=== PATIENT | female | born 1980 | race Caucasian/White ===

== ENCOUNTER 2017-01-30 16:05 | Observation (INO) | payer OTHER ==
[~2017-01-30] VITALS: Ht 175.3 cm; Wt 149.4 kg
--- NOTE | 2017-01-30 20:08 | DIAGNOSTIC IMAGING REPORT ---
PROCEDURE: US COMPLETE PELVIC INDICATION: POST-COITAL PAIN LEFT PELVIC AREA TECHNIQUE: Transabdominal and endovaginal quintanilla scale and color Doppler sonographic images of the female pelvis were obtained. COMPARISON: None. FINDINGS: TRANSABDOMINAL SCANS: Normal kidneys. No pelvic mass. TRANSVAGINAL SCANS: Uterus measures 8.4 x 4.6 x 4.1 cm with an IUD in satisfactory position. Endometrium measures 10.3 mm. No evidence of intrauterine gestational sac. Right ovary not visualized. Left adnexal structure measures 2.9 x 2.2 x 2.2 cm with difficult to differentiate margins and adjacent heterogeneous tissue. There is mild fluid in the adnexa with internal echoes suspicious for a hemoperitoneum. IMPRESSION: 1. IUD in place 2. Left adnexal structure which probably represents the left ovary with heterogeneous adjacent tissue and mild echogenic free fluid suggestive of hemoperitoneum. In the context of a positive test and no intrauterine gestational sac, this is suspicious for an ectopic 3. Results discussed with Dr. Saleh
--- NOTE | 2017-01-30 20:12 | ED CLINICAL REPORT ---
Clinical Report - Physicians/Mid Levels [facility] [address] [place] [address] 01/30/2017 16:07 Patient: TAL ANGEL Time Seen: 1625. Arrived- By private vehicle. Historian- patient. HISTORY OF PRESENT ILLNESS Chief Complaint: ABDOMINAL PAIN. It is described as sharp. No radiation. It is described as located in the left pelvis. At its maximum, severity described as severe. When seen in the E.D., severity described as severe. Modifying factors- worsened by movement. Not relieved by anything. This started today and is still present and worsening. It was abrupt in onset and has been constant but is not gone now. The patient has had nausea. No loss of appetite, vomiting or diarrhea. No additional abdominal pain. (occurred right after coitus.). No recent travel. REVIEW OF SYSTEMS No black stools, hematemesis, bloody stools, fever or chest pain. No difficulty breathing. All systems otherwise negative, except as recorded above. PAST HISTORY See nurses notes. Medications: None. Allergies: Cinamon . Eggs. Latex. SOCIAL HISTORY Never smoker. No alcohol use or drug use. No recent travel. Is a local resident. ADDITIONAL NOTES The nursing notes have been reviewed. PHYSICAL EXAM Vital Signs: 01/30/2017 16:12 BP: 143/77. HR: 83. RR: 22. O2 saturation: 98%. Temp: 97.5 F. Pain level now: 10/10. Oxygen saturation normal. Appearance: Alert. Oriented X3. Patient in moderate distress. (non-toxic. cooperative. pleasant.). Eyes: Pupils equal, round and reactive to light. Eyes normal inspection. No pale conjunctivae. ENT: Ears normal. Nose normal. Pharynx normal. Neck: Normal inspection. Neck supple. CVS: Normal heart rate and rhythm. Heart sounds normal. Pulses normal. Respiratory: No respiratory distress. Breath sounds normal. Chest nontender. No rales, rhonchi or wheezes. Abdomen: Soft. Moderate tenderness in the left lower quadrant. Bowel sounds normal. No organomegaly. No mass. Skin: Skin warm and dry. Normal skin color. No rash. Normal skin turgor. Extremities: Extremities exhibit normal ROM. No lower extremity edema. Neuro: No motor deficit. No sensory deficit. LABS, X-RAYS, AND EKG Pelvic Sonogram: unable to see right ovary. possible free fluid in the left pelvis. The study was independently viewed by me and interpreted by the radiologist. The study was discussed with the radiologist (via phone and pacs). Laboratory Tests: UA-Culture if indicated: (SHAHANA: 01/30/2017 16:00) ( [facility] 01/30/2017 16:56) Final results Test Result Flag Units (Reference) URINE COLOR YELLOW URINE APPEARANCE CLOUDY URINE GLUCOSE NEGATIVE (NEGATIVE) URINE BILIRUBIN NEGATIVE (NEGATIVE) URINE KETONE NEGATIVE (NEGATIVE) URINE SPECIFIC GRAVITY >= 1.030 (1.010-1.030) URINE PH 6.0 (5.0-8.0) URINE PROTEIN 1+ (NEGATIVE) URINE UROBILINOGEN 0.2 EU/dL (0.2-1.0) URINE NITRITE NEGATIVE (NEGATIVE) URINE BLOOD 3+ (NEGATIVE) URINE LEUK ESTERASE NEGATIVE (NEGATIVE) URINE RBC 75-100 rbc/hpf (0-1) URINE WBC NONE SEEN wbc/hpf (0-1) URINE EPITHELIAL CELLS 3-5 EPI/hpf (0-5) URINE BACTERIA NONE SEEN (NONE SEEN) URINE COMMENT CULT NOT INDICATED 1+ MUCUSURINE CULTURES ARE SET-UP BASED ON THE FOLLOWING CRITERIA:POSITIVE NITRITEPOSITIVE LEUKOCYTE ESTERASEGREATER THAN 10 WHITE BLOOD CELLSMODERATE (2+) OR GREATER BACTERIA Urine: (SHAHANA: 01/30/2017 16:10) ( [facility] 01/30/2017 16:57) Final results Test Result Flag Units (Reference) URINE POSITIVE CBC w Diff: (SHAHANA: 01/30/2017 16:40) ( [facility] 01/30/2017 16:57) Final results Test Result Flag Units (Reference) WHITE BLOOD COUNT 13.4 H K/uL (4.5-11.5) RED BLOOD COUNT 4.89 M/uL (4.00-5.20) HEMOGLOBIN 14.0 gm/dL (12.0-16.0) HEMATOCRIT 42.1 % (36.0-46.0) MEAN CELL VOLUME 86 fL (80-100) MEAN CORPUSCULAR HGB 29 pg (26-34) MEAN CORPUSCULAR HGB CONC 33 g/dL (31-37) RED CELL DISTRIBUTION WIDTH 13.4 % (11.6-14.8) PLATELET COUNT 369 K/uL (150-400) NEUTROPHIL % 76.6 H % (50-75) LYMPH % 14.9 L % (25-40) MONO % 6.1 % (3-14) EOSINOPHIL % 2.1 % (0-4) BASOPHIL % 0.3 % (0-2) Serum Quantitative: (SHAHANA: 01/30/2017 16:40) ( [facility] 01/30/2017 19:09) Final results Test Result Flag Units (Reference) BETA HCG, QUANTITATIVE 59 mIU/mL REFERENCE RANGE:Adult Males: <2 mIU/mLNon- Females: <6 mIU/mL Females:Approximate Approximate hCGGestational Age Range (mIU/mL) 0-1 week 0-501-2 weeks 40-3002-3 weeks 100-72793-2 weeks 500-91117-4 months 5,000-200,0002-3 months 10,000-100,0002nd trimester 3,000-50,0003rd trimester 1,000-50,000 CMP: (SHAHANA: 01/30/2017 16:40) ( [facility] 01/30/2017 17:12) Final results Test Result Flag Units (Reference) GLUCOSE 113 H mg/dL (70-110) BUN 14 mg/dL (7-18) CREATININE 0.8 mg/dL (0.6-1.3) Estimated GFR >60 mL/min Estimated GFR- >60 mL/min Note: Persistent reduction over 3 months in eGFR<60 mL/min/1.73 m2 defines CKD. Patients with eGFR values>=60 mL/min/1.73 m2 may also have CKD if evidence ofpersistent proteinuria. Additional information may be foundat www.kidney.org. SODIUM 142 mmol/L (136-145) POTASSIUM 4.0 mmol/L (3.5-5.1) CHLORIDE 105 mmol/L (98-107) CARBON DIOXIDE 25 mmol/L (21-32) CALCIUM 8.4 L mg/dL (8.5-10.1) TOTAL PROTEIN 7.4 g/dL (6.4-8.2) ALBUMIN 3.3 g/dL (3.3-5.0) BILIRUBIN, TOTAL 0.2 mg/dL (0.0-1.0) ALKALINE PHOSPHATASE 62 U/L (46-116) AST (SGOT) 16 U/L (15-37) ALT (SGPT) 29 U/L (12-78) Type & Screen: (SHAHANA: 01/30/2017 16:40) ( Msg[facility]cvd 01/30/2017 19:05) Final results Test Result Flag Units (Reference) PATIENT BLOOD TYPE A Positive ANTIBODY SCREEN NEGATIVE . PROGRESS AND PROCEDURES Course of Care: The patient is a pleasant 36 yo female presenting for left pelvic pain. Patient in discomfort. Concern for ectopic, PID, or UTI. US ordered. Patient a febrile and non-toxic. Work up shows patient to have positive U preg. Beta ordered. US shows patient to have free fluid in the pelvis. Type and screen ordered. Pain was somewhat difficult to control in the ED. Able to get it better controlled with several doses of morphine. Patient likely with ectopic preg. CRAB PICKER called. Beta pending. Spoke with CRAB PICKER about managment. Because of patient's pain and free fluid. Patient could be monitored in the hospital. Patient agreeable to the work up and plan. Patient with normal h/h and BP. Patient without signs of acute blood loss anemia or hypovolemia. Will monitor while here. CRAB PICKER accepted patient. Critical care performed (60 minutes). Time is exclusive of separately billable procedures. Time includes: direct patient care, patient reassessment, coordination of patient care, review of patient's medical records, medical consultation and documentation of patient care. CLINICAL IMPRESSION ectopic , acute intraabdominal hemorrhage, acute intractable abdominal pain. (Electronically signed by Javed Saleh Dr. 01/31/2017 9:17)
--- NOTE | 2017-01-30 20:12 | ED ORDER SUMMARY ---
..... Patient: TAL ANGEL OrderSheet [facility] VisitID: [id number] [place] [address] 36y, F Registration Date/Time: 01/30/2017 ORDER SHEET Weight: 136.0 kg (estimated) Allergies: Eggs, Cinamon , Latex GENERAL ORDERS: US Pelvic Complete Urgent (16:01/30/2017 Luis Coreas) (Ack 16:40 Satnam) (18:21 KPage-Kuchan R.N.) CBC w Diff Urgent (16:01/30/2017 Luis Coreas) (Ack 16:40 Satnam) (16:42 MWinterer R.N.) CMP Urgent (16:01/30/2017 Luis Coreas) (Ack 16:40 Satnam) (16:42 MWinterer R.N.) UA-Culture if indicated Urgent (16:01/30/2017 Luis Coreas) (Ack 16:40 Satnam) (16:51 MWinterer R.N.) Urine Urgent (16:01/30/2017 Luis Coreas) (Ack 16:40 Satnam) (16:51 MWinterer R.N.) Pulse oximeter (16:01/30/2017 Luis Coreas) (Ack 16:40 Satnam) (16:42 MWinterer R.N.) Serum Quantitative Urgent (18:01/30/2017 Luis Coreas) (Ack 18:20 Satnam) (18:21 KPage-Kuchan R.N.) Type & Screen Urgent (18:01/30/2017 Luis Coreas) (Ack 18:20 Satnam) (18:21 KPage-Kuchan R.N.) MEDICATION ORDERS: IV FLUIDS: Morphine IV 4 mg (HIGH ALERT MEDICATION, NOW) (16:01/30/2017 Luis Coreas) (Ack 16:43 MWinterer R.N.) (16:49 MWinterer R.N.) Zofran IV 4 mg (NOW) (16:01/30/2017 Luis Coreas) (Ack 16:43 MWinterer R.N.) (16:49 MWinterer R.N.) IV Saline Lock (16:31 01/30/2017 Luis Coreas) (16:43 MWinterer R.N.) Morphine IV 8 mg (HIGH ALERT MEDICATION, NOW) (17:17 01/30/2017 Luis Coreas) (Ack 17:18 MWinterer R.N.) (17:26 MWinterer R.N.) Morphine IV 8 mg (HIGH ALERT MEDICATION, NOW) (18:11 01/30/2017 Luis Coreas) (Ack 18:13 KPage-Kuchan R.N.) (18:21 KPage-Kuchan R.N.) Morphine IV 8 mg (HIGH ALERT MEDICATION, NOW) (20:09 01/30/2017 Luis Coreas) (Ack 20:10 KPage-Kuchan R.N.) (20:48 KPage-Kuchan R.N.) ORDER SHEET NOTES: [Electronically signed by Javed Saleh Dr. (09:17 01/31/2017)] [Electronically signed by Allegra Orlando R.N. (17:49 02/03/2017)] [Electronically locked/signed by Allegra Orlando R.N. (17:49 02/03/2017)]
--- NOTE | 2017-01-30 20:12 | ED NURSING NOTES ---
Clinical Report - Nurses [facility] [address] [place] [address] 01/30/2017 16:07 Patient: TAL ANGEL TRIAGE Triage time 16:12. Acuity: LEVEL 3. Chief Complaint: ABDOMINAL PAIN and (Hurts in the groin and around to the back, and down the legs. Mostly the lt leg. Pain started a couple of hours ago after having sex with SO, also having some vaginal bleeding when wipes and in the toilet.). Alert. No acute distress. TREVOR COMA SCORE: [place] Coma Scale: 15- eyes open spontaneously (4); best verbal response- oriented x 4 (5); best motor response- obeys commands (6). --16:26 Dara Lopez R.N. 16:12 01/30/17. BP: 143/77 taken on the left arm, while sitting. HR: 83. RR: 22. O2 saturation: 98%. Temp: 97.5 F. Pain level now: 06/08. --16:26 Dara Lopez R.N. Height/Length: 69 inches Per Patient. --16:21 Dara Lopez R.N.. Weight: 136 kg estimated. BMI: 44.3. --16:21 Dara Lopez R.N. Medications None. --16:19 Dara Lopez R.N. Medication/allergy information source: the patient. --16:26 Dara Lopez R.N. Allergies Eggs. --16:20 Dara Lopez R.N. Cinamon . --16:20 Dara Lopez R.N. Latex. --16:20 Dara Lopez R.N. History Arrived by private vehicle. Historian: patient. Accompanied by friend. No primary care physician. This started just prior to arrival. She has had nausea, constipation and abdominal pain. No vomiting. Last oral intake by patient was today 1 hour ago. Treatment FASHION CONSULTANT SALES: None. PAST MEDICAL HX: Immunizations: status is unknown. Uses an intrauterine device. SOCIAL HX: Smoker- current status unknown. Alcohol use; consumes beer daily and liquor daily. History of drug use: marijuana. No recent travel. No known contact with a sick individual. FALL RISK ASSESSMENT: Fall risk assessment completed. No fall risk identified. NUTRITIONAL RISK ASSESSMENT: The nutritional risk assessment revealed no deficiencies. FUNCTIONAL ASSESSMENT: Functional assessment: no impairments noted. LEARNING NEEDS ASSESSMENT: The learning needs assessment revealed no barriers. SKIN INTEGRITY ASSESSMENT: Skin integrity risk assessment completed. No skin integrity risk identified. --16:26 Dara Lopez R.N. PROBLEMS: Hypertension. --16:20 Dara Lopez R.N. ADDITIONAL SURGERIES: Cholecystectomy. --16:20 Dara Lopez R.N. Interventions ID band on patient. To room. --16:26 Dara Lopez R.N. PHYSICAL ASSESSMENT Ambulatory to room. Patient gowned. GENERAL / NEURO / PSYCH: Alert. Oriented X 4. Appears in pain and anxious. HEENT: Mucous membranes are pink. RESPIRATORY: Respirations not labored. CVS: Capillary refill less than 2 seconds. GI / : The patient has had nausea. Abdominal tenderness. No emesis noted. ( vaginal bleeding). SKIN: Skin is warm and dry. --16:27 Dara Lopez R.N. NURSING PROGRESS NOTES Patient gowned. Head of bed elevated. Two patient identifiers checked. Call light placed in reach. Side rails up x 2. Bed placed in lowest position. Brakes of bed on. Patient ready for evaluation. --16:27 Dara Lopez R.N. 16:43 01/30/2017 Site #1 started via IV in the right hand with an 22g angiocath, with aseptic technique and good blood return; one attempt. Blood drawn: rainbow set. Labeled in the presence of the patient and sent to the lab. Saline lock flushed with 10 mL saline. --16:43 Asmita Akins R.N. 16:44 01/30/2017 Zofran (Ondansetron HCl) IVP 4 mg given over 1 minute(s) via site #1. Allergies verified and confirmed 5 rights. IV patency established. IV site checked: no pain, redness, or swelling. IV flushed thoroughly pre- and post-medication administration. IVP given by RN. --16:49 Asmita Akins R.N. 16:49 01/30/2017 Morphine IVP 4 mg given over 2 minute(s) via site #1. Allergies verified, confirmed 5 rights and sedative warning given to the patient. IV patency established. IV site checked: no pain, redness, or swelling. IV flushed thoroughly pre- and post-medication administration. IVP given by RN. --16:49 Asmita Akins R.N. 17:03 01/30/17. ( Pt informed of wait for US.). --17:03 Asmita Akins R.N. <<STRICKEN ENTRY-- 17:15 01/30/2017 Morphine IVP 4 mg given over 1 minute(s) via site #1. Allergies verified, confirmed 5 rights and sedative warning given to the patient. IV patency established. IV site checked: no pain, redness, or swelling. IV flushed thoroughly pre- and post-medication administration. IVP given by RN (per ED MD request). --17:15 Asmita Akins R.N. --END STRIKE>> Other. --17:16 Asmita Akins R.N. <<STRICKEN ENTRY-- 17:16 01/30/2017 Morphine IVP 4 mg given over 1 minute(s) via site #1. Allergies verified, confirmed 5 rights and sedative warning given to the patient. IV patency established. IV site checked: no pain, redness, or swelling. IV flushed thoroughly pre- and post-medication administration. IVP given by RN (Per ED MD verbal order.). --17:16 Asmita Akins R.N. --END STRIKE>> Other. --17:25 Asmita Akins R.NJen 17:21 01/30/2017 Morphine IVP 8 mg given over 3 minute(s) via site #1. Allergies verified, confirmed 5 rights and sedative warning given to the patient. IV patency established. IV site checked: no pain, redness, or swelling. IV flushed thoroughly pre- and post-medication administration. IVP given by RN. --17:26 Asmita Akins R.N. 18:09 01/30/17. BP: 146/74. HR: 89. RR: 17. O2 saturation: 97%. Pain level now: 04/08. --18:10 Allegra Orlando R.N. Patient identifiers checked. Call light placed in reach. Side rails up x 1. Bed placed in lowest position. Brakes of bed on. ( vs completed , pt rates pain 8/10, requests more morphine, will notify MD, s/o at bedside). --18:10 Allegra Orlando R.N. 18:16 01/30/2017 Morphine IVP 8 mg given. via site #1. Allergies verified, confirmed 5 rights and sedative warning given to the patient and patient's survey project manager. IV patency established. IV site checked: no pain, redness, or swelling. IV flushed thoroughly pre- and post-medication administration. IVP given by RN. --18:21 Allegra Orlando R.N. 20:31 01/30/2017 Morphine IVP 8 mg given. via site #1. Allergies verified, confirmed 5 rights and sedative warning given to the patient and patient's family. IV patency established. IV site checked: no pain, redness, or swelling. IV flushed thoroughly pre- and post-medication administration. --20:48 Allegra Orlando R.N. DISPOSITION / DISCHARGE Admitted to Acute Care (20:51 Jan 30 2017). Transported via stretcher by [facility]. Report was given to a nurse via a phone call. Report included patient's care, treatment, medications, reviewed medication reconcilliation, and condition (including any recent changes or anticipated changes). All questions were answered. Report was acknowledged and care was transferred. (Chelsie DAVIS). Patient's personal items include, with pt. --20:53 Allegra Orlando R.N. 20:51 01/30/17. BP: 117/94. HR: 93. RR: 17. O2 saturation: 100%. Temp: deferred. Pain level now: 12/07. --20:53 Allegra Orlando R.N. Locked/Released at 02/03/2017 17:49 by Allegra Orlando R.N.
--- NOTE | 2017-01-30 20:12 | ED CLINICAL REPORT ---
Clinical Report - Physicians/Mid Levels [facility] [address] [place] [address] 01/30/2017 16:07 Patient: TAL ANGEL Time Seen: 1625. Arrived- By private vehicle. Historian- patient. HISTORY OF PRESENT ILLNESS Chief Complaint: ABDOMINAL PAIN. It is described as sharp. No radiation. It is described as located in the left pelvis. At its maximum, severity described as severe. When seen in the E.D., severity described as severe. Modifying factors- worsened by movement. Not relieved by anything. This started today and is still present and worsening. It was abrupt in onset and has been constant but is not gone now. The patient has had nausea. No loss of appetite, vomiting or diarrhea. No additional abdominal pain. (occurred right after coitus.). No recent travel. REVIEW OF SYSTEMS No black stools, hematemesis, bloody stools, fever or chest pain. No difficulty breathing. All systems otherwise negative, except as recorded above. PAST HISTORY See nurses notes. Medications: None. Allergies: Cinamon . Eggs. Latex. SOCIAL HISTORY Never smoker. No alcohol use or drug use. No recent travel. Is a local resident. ADDITIONAL NOTES The nursing notes have been reviewed. PHYSICAL EXAM Vital Signs: 01/30/2017 16:12 BP: 143/77. HR: 83. RR: 22. O2 saturation: 98%. Temp: 97.5 F. Pain level now: 10/10. Oxygen saturation normal. Appearance: Alert. Oriented X3. Patient in moderate distress. (non-toxic. cooperative. pleasant.). Eyes: Pupils equal, round and reactive to light. Eyes normal inspection. No pale conjunctivae. ENT: Ears normal. Nose normal. Pharynx normal. Neck: Normal inspection. Neck supple. CVS: Normal heart rate and rhythm. Heart sounds normal. Pulses normal. Respiratory: No respiratory distress. Breath sounds normal. Chest nontender. No rales, rhonchi or wheezes. Abdomen: Soft. Moderate tenderness in the left lower quadrant. Bowel sounds normal. No organomegaly. No mass. Skin: Skin warm and dry. Normal skin color. No rash. Normal skin turgor. Extremities: Extremities exhibit normal ROM. No lower extremity edema. Neuro: No motor deficit. No sensory deficit. LABS, X-RAYS, AND EKG Pelvic Sonogram: unable to see right ovary. possible free fluid in the left pelvis. The study was independently viewed by me and interpreted by the radiologist. The study was discussed with the radiologist (via phone and pacs). Laboratory Tests: UA-Culture if indicated: (SHAHANA: 01/30/2017 16:00) ( [facility] 01/30/2017 16:56) Final results Test Result Flag Units (Reference) URINE COLOR YELLOW URINE APPEARANCE CLOUDY URINE GLUCOSE NEGATIVE (NEGATIVE) URINE BILIRUBIN NEGATIVE (NEGATIVE) URINE KETONE NEGATIVE (NEGATIVE) URINE SPECIFIC GRAVITY >= 1.030 (1.010-1.030) URINE PH 6.0 (5.0-8.0) URINE PROTEIN 1+ (NEGATIVE) URINE UROBILINOGEN 0.2 EU/dL (0.2-1.0) URINE NITRITE NEGATIVE (NEGATIVE) URINE BLOOD 3+ (NEGATIVE) URINE LEUK ESTERASE NEGATIVE (NEGATIVE) URINE RBC 75-100 rbc/hpf (0-1) URINE WBC NONE SEEN wbc/hpf (0-1) URINE EPITHELIAL CELLS 3-5 EPI/hpf (0-5) URINE BACTERIA NONE SEEN (NONE SEEN) URINE COMMENT CULT NOT INDICATED 1+ MUCUSURINE CULTURES ARE SET-UP BASED ON THE FOLLOWING CRITERIA:POSITIVE NITRITEPOSITIVE LEUKOCYTE ESTERASEGREATER THAN 10 WHITE BLOOD CELLSMODERATE (2+) OR GREATER BACTERIA Urine: (SHAHANA: 01/30/2017 16:10) ( [facility] 01/30/2017 16:57) Final results Test Result Flag Units (Reference) URINE POSITIVE CBC w Diff: (SHAHANA: 01/30/2017 16:40) ( [facility] 01/30/2017 16:57) Final results Test Result Flag Units (Reference) WHITE BLOOD COUNT 13.4 H K/uL (4.5-11.5) RED BLOOD COUNT 4.89 M/uL (4.00-5.20) HEMOGLOBIN 14.0 gm/dL (12.0-16.0) HEMATOCRIT 42.1 % (36.0-46.0) MEAN CELL VOLUME 86 fL (80-100) MEAN CORPUSCULAR HGB 29 pg (26-34) MEAN CORPUSCULAR HGB CONC 33 g/dL (31-37) RED CELL DISTRIBUTION WIDTH 13.4 % (11.6-14.8) PLATELET COUNT 369 K/uL (150-400) NEUTROPHIL % 76.6 H % (50-75) LYMPH % 14.9 L % (25-40) MONO % 6.1 % (3-14) EOSINOPHIL % 2.1 % (0-4) BASOPHIL % 0.3 % (0-2) Serum Quantitative: (SHAHANA: 01/30/2017 16:40) ( [facility] 01/30/2017 19:09) Final results Test Result Flag Units (Reference) BETA HCG, QUANTITATIVE 59 mIU/mL REFERENCE RANGE:Adult Males: <2 mIU/mLNon- Females: <6 mIU/mL Females:Approximate Approximate hCGGestational Age Range (mIU/mL) 0-1 week 0-501-2 weeks 40-3002-3 weeks 100-13580-1 weeks 500-38771-3 months 5,000-200,0002-3 months 10,000-100,0002nd trimester 3,000-50,0003rd trimester 1,000-50,000 CMP: (SHAHANA: 01/30/2017 16:40) ( [facility] 01/30/2017 17:12) Final results Test Result Flag Units (Reference) GLUCOSE 113 H mg/dL (70-110) BUN 14 mg/dL (7-18) CREATININE 0.8 mg/dL (0.6-1.3) Estimated GFR >60 mL/min Estimated GFR- >60 mL/min Note: Persistent reduction over 3 months in eGFR<60 mL/min/1.73 m2 defines CKD. Patients with eGFR values>=60 mL/min/1.73 m2 may also have CKD if evidence ofpersistent proteinuria. Additional information may be foundat www.kidney.org. SODIUM 142 mmol/L (136-145) POTASSIUM 4.0 mmol/L (3.5-5.1) CHLORIDE 105 mmol/L (98-107) CARBON DIOXIDE 25 mmol/L (21-32) CALCIUM 8.4 L mg/dL (8.5-10.1) TOTAL PROTEIN 7.4 g/dL (6.4-8.2) ALBUMIN 3.3 g/dL (3.3-5.0) BILIRUBIN, TOTAL 0.2 mg/dL (0.0-1.0) ALKALINE PHOSPHATASE 62 U/L (46-116) AST (SGOT) 16 U/L (15-37) ALT (SGPT) 29 U/L (12-78) Type & Screen: (SHAHANA: 01/30/2017 16:40) ( [facility]sgRcvd 01/30/2017 19:05) Final results Test Result Flag Units (Reference) PATIENT BLOOD TYPE A Positive ANTIBODY SCREEN NEGATIVE . PROGRESS AND PROCEDURES Course of Care: The patient is a pleasant 36 yo female presenting for left pelvic pain. Patient in discomfort. Concern for ectopic, PID, or UTI. US ordered. Patient a febrile and non-toxic. Work up shows patient to have positive U preg. Beta ordered. US shows patient to have free fluid in the pelvis. Type and screen ordered. Pain was somewhat difficult to control in the ED. Able to get it better controlled with several doses of morphine. Patient likely with ectopic preg. MARINE MECHANIC called. Beta pending. Spoke with MARINE MECHANIC about managment. Because of patient's pain and free fluid. Patient could be monitored in the hospital. Patient agreeable to the work up and plan. Patient with normal h/h and BP. Patient without signs of acute blood loss anemia or hypovolemia. Will monitor while here. MARINE MECHANIC accepted patient. Critical care performed (60 minutes). Time is exclusive of separately billable procedures. Time includes: direct patient care, patient reassessment, coordination of patient care, review of patient's medical records, medical consultation and documentation of patient care. CLINICAL IMPRESSION ectopic , acute intraabdominal hemorrhage, acute intractable abdominal pain. (Electronically signed by Javed Saleh Dr. 01/31/2017 9:17)
--- NOTE | 2017-01-30 20:12 | ED NURSING NOTES ---
Clinical Report - Nurses [facility] [address] [place] [address] 01/30/2017 16:07 Patient: TAL ANGEL TRIAGE Triage time 16:12. Acuity: LEVEL 3. Chief Complaint: ABDOMINAL PAIN and (Hurts in the groin and around to the back, and down the legs. Mostly the lt leg. Pain started a couple of hours ago after having sex with SO, also having some vaginal bleeding when wipes and in the toilet.). Alert. No acute distress. TREVOR COMA SCORE: [place] Coma Scale: 15- eyes open spontaneously (4); best verbal response- oriented x 4 (5); best motor response- obeys commands (6). --16:26 Dara Lopez R.N. 16:12 01/30/17. BP: 143/77 taken on the left arm, while sitting. HR: 83. RR: 22. O2 saturation: 98%. Temp: 97.5 F. Pain level now: 06/08. --16:26 Dara Lopez R.N. Height/Length: 69 inches Per Patient. --16:21 Dara Lopez R.N.. Weight: 136 kg estimated. BMI: 44.3. --16:21 Dara Lopez R.N. Medications None. --16:19 Dara Lopez R.N. Medication/allergy information source: the patient. --16:26 Dara Lopez R.N. Allergies Eggs. --16:20 Dara Lopez R.N. Cinamon . --16:20 Dara Lopez R.N. Latex. --16:20 Dara Lopez R.N. History Arrived by private vehicle. Historian: patient. Accompanied by friend. No primary care physician. This started just prior to arrival. She has had nausea, constipation and abdominal pain. No vomiting. Last oral intake by patient was today 1 hour ago. 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 PAST MEDICAL HX: Immunizations: status is unknown. Uses an intrauterine device. SOCIAL HX: Smoker- current status unknown. Alcohol use; consumes beer daily and liquor daily. History of drug use: marijuana. No recent travel. No known contact with a sick individual. FALL RISK ASSESSMENT: Fall risk assessment completed. No fall risk identified. NUTRITIONAL RISK ASSESSMENT: The nutritional risk assessment revealed no deficiencies. FUNCTIONAL ASSESSMENT: Functional assessment: no impairments noted. LEARNING NEEDS ASSESSMENT: The learning needs assessment revealed no barriers. SKIN INTEGRITY ASSESSMENT: Skin integrity risk assessment completed. No skin integrity risk identified. --16:26 Dara Lopez R.N. PROBLEMS: Hypertension. --16:20 Dara Lopez R.N. ADDITIONAL SURGERIES: Cholecystectomy. --16:20 Dara Lopez R.N. Interventions ID band on patient. To room. --16:26 Dara Lopez R.N. PHYSICAL ASSESSMENT Ambulatory to room. Patient gowned. GENERAL / NEURO / PSYCH: Alert. Oriented X 4. Appears in pain and anxious. HEENT: Mucous membranes are pink. RESPIRATORY: Respirations not labored. CVS: Capillary refill less than 2 seconds. GI / : The patient has had nausea. Abdominal tenderness. No emesis noted. ( vaginal bleeding). SKIN: Skin is warm and dry. --16:27 Dara Lopez R.N. NURSING PROGRESS NOTES Patient gowned. Head of bed elevated. Two patient identifiers checked. Call light placed in reach. Side rails up x 2. Bed placed in lowest position. Brakes of bed on. Patient ready for evaluation. --16:27 Dara Lopez R.N. 16:43 01/30/2017 Site #1 started via IV in the right hand with an 22g angiocath, with aseptic technique and good blood return; one attempt. Blood drawn: rainbow set. Labeled in the presence of the patient and sent to the lab. Saline lock flushed with 10 mL saline. --16:43 Asmita Akins R.N. 16:44 01/30/2017 Zofran (Ondansetron HCl) IVP 4 mg given over 1 minute(s) via site #1. Allergies verified and confirmed 5 rights. IV patency established. IV site checked: no pain, redness, or swelling. IV flushed thoroughly pre- and post-medication administration. IVP given by RN. --16:49 Asmita Akins R.N. 16:49 01/30/2017 Morphine IVP 4 mg given over 2 minute(s) via site #1. Allergies verified, confirmed 5 rights and sedative warning given to the patient. IV patency established. IV site checked: no pain, redness, or swelling. IV flushed thoroughly pre- and post-medication administration. IVP given by RN. --16:49 Asmita Akins R.N. 17:03 01/30/17. ( Pt informed of wait for US.). --17:03 Asmita Akins R.N. <<STRICKEN ENTRY-- 17:15 01/30/2017 Morphine IVP 4 mg given over 1 minute(s) via site #1. Allergies verified, confirmed 5 rights and sedative warning given to the patient. IV patency established. IV site checked: no pain, redness, or swelling. IV flushed thoroughly pre- and post-medication administration. IVP given by RN (per ED MD request). --17:15 Asmita Akins R.N. --END STRIKE>> Other. --17:16 Asmita Akins R.N. <<STRICKEN ENTRY-- 17:16 01/30/2017 Morphine IVP 4 mg given over 1 minute(s) via site #1. Allergies verified, confirmed 5 rights and sedative warning given to the patient. IV patency established. IV site checked: no pain, redness, or swelling. IV flushed thoroughly pre- and post-medication administration. IVP given by RN (Per ED MD verbal order.). --17:16 Asmita Akins R.N. --END STRIKE>> Other. --17:25 Asmita Akins R.NJen 17:21 01/30/2017 Morphine IVP 8 mg given over 3 minute(s) via site #1. Allergies verified, confirmed 5 rights and sedative warning given to the patient. IV patency established. IV site checked: no pain, redness, or swelling. IV flushed thoroughly pre- and post-medication administration. IVP given by RN. --17:26 Asmita Akisn R.N. 18:09 01/30/17. BP: 146/74. HR: 89. RR: 17. O2 saturation: 97%. Pain level now: 04/08. --18:10 Allegra Orlando R.N. Patient identifiers checked. Call light placed in reach. Side rails up x 1. Bed placed in lowest position. Brakes of bed on. ( vs completed , pt rates pain 8/10, requests more morphine, will notify MD, s/o at bedside). --18:10 Allegra Orlando R.N. 18:16 01/30/2017 Morphine IVP 8 mg given. via site #1. Allergies verified, confirmed 5 rights and sedative warning given to the patient and patient's manager of change. IV patency established. IV site checked: no pain, redness, or swelling. IV flushed thoroughly pre- and post-medication administration. IVP given by RN. --18:21 Allegra Orlando R.N. 20:31 01/30/2017 Morphine IVP 8 mg given. via site #1. Allergies verified, confirmed 5 rights and sedative warning given to the patient and patient's family. IV patency established. IV site checked: no pain, redness, or swelling. IV flushed thoroughly pre- and post-medication administration. --20:48 Allegra Orlando R.N. DISPOSITION / DISCHARGE Admitted to Acute Care (20:51 Jan 30 2017). Transported via stretcher by [employer]. Report was given to a nurse via a phone call. Report included patient's care, treatment, medications, reviewed medication reconcilliation, and condition (including any recent changes or anticipated changes). All questions were answered. Report was acknowledged and care was transferred. (Chelsie DAVIS). Patient's personal items include, with pt. --20:53 Allegra Orlando R.N. 20:51 01/30/17. BP: 117/94. HR: 93. RR: 17. O2 saturation: 100%. Temp: deferred. Pain level now: 12/07. --20:53 Allegra Orlando R.N. Locked/Released at 02/03/2017 17:49 by Allegra Orlando R.N.
--- NOTE | 2017-01-30 20:12 | ED ORDER SUMMARY ---
..... Patient: TAL ANGEL OrderSheet [facility] VisitID: [id number] [place] [address] 36y, F Registration Date/Time: 01/30/2017 ORDER SHEET Weight: 136.0 kg (estimated) Allergies: Eggs, Cinamon , Latex GENERAL ORDERS: US Pelvic Complete Urgent (16:01/30/2017 Luis Coreas) (Ack 16:40 Satnam) (18:21 KPage-Kuchan R.N.) CBC w Diff Urgent (16:01/30/2017 Luis Coreas) (Ack 16:40 Satnam) (16:42 MWinterer R.N.) CMP Urgent (16:01/30/2017 Luis Coreas) (Ack 16:40 Satnam) (16:42 MWinterer R.N.) UA-Culture if indicated Urgent (16:01/30/2017 Luis Coreas) (Ack 16:40 Satnam) (16:51 MWinterer R.N.) Urine Urgent (16:01/30/2017 Luis Coreas) (Ack 16:40 Satnam) (16:51 MWinterer R.N.) Pulse oximeter (16:01/30/2017 Luis Coreas) (Ack 16:40 Satnam) (16:42 MWinterer R.N.) Serum Quantitative Urgent (18:01/30/2017 Luis Coreas) (Ack 18:20 Satnam) (18:21 KPage-Kuchan R.N.) Type & Screen Urgent (18:01/30/2017 Luis Coreas) (Ack 18:20 Satnam) (18:21 KPage-Kuchan R.N.) MEDICATION ORDERS: IV FLUIDS: Morphine IV 4 mg (HIGH ALERT MEDICATION, NOW) (16:01/30/2017 Luis Coreas) (Ack 16:43 MWinterer R.N.) (16:49 MWinterer R.N.) Zofran IV 4 mg (NOW) (16:01/30/2017 Luis Coreas) (Ack 16:43 MWinterer R.N.) (16:49 MWinterer R.N.) IV Saline Lock (16:31 01/30/2017 Luis Coreas) (16:43 MWinterer R.N.) Morphine IV 8 mg (HIGH ALERT MEDICATION, NOW) (17:17 01/30/2017 Luis Coreas) (Ack 17:18 MWinterer R.N.) (17:26 MWinterer R.N.) Morphine IV 8 mg (HIGH ALERT MEDICATION, NOW) (18:11 01/30/2017 Luis Coreas) (Ack 18:13 KPage-Kuchan R.N.) (18:21 KPage-Kuchan R.N.) Morphine IV 8 mg (HIGH ALERT MEDICATION, NOW) (20:09 01/30/2017 Luis Coreas) (Ack 20:10 KPage-Kuchan R.N.) (20:48 KPage-Kuchan R.N.) ORDER SHEET NOTES: [Electronically signed by Javed Saleh Dr. (09:17 01/31/2017)] [Electronically signed by Allegra Orlando R.N. (17:49 02/03/2017)] [Electronically locked/signed by Allegra Orlando R.N. (17:49 02/03/2017)]
[2017-01-30 21:27] VITALS: BP 181/115
[2017-01-30 21:37] VITALS: BP 147/94
[2017-01-30 22:41] VITALS: BP 147/104
--- NOTE | 2017-01-30 22:58 | HISTORY AND PHYSICAL ---
ADMITTED: 01/30/2017 CHIEF COMPLAINT: 1. Left lower quadrant pain after intercourse HISTORY OF PRESENT ILLNESS: The patient was sexually active earlier today and came in with an abrupt onset of pain. test was positive. The patient gives a history of having an IUD for the last 4 years. The quantitative hCG was 59. Ultrasound was done once and a repeat shows a small amount of fluid on the left side. IUD was in the proper place in the uterus. There was no tissue or sac or identifiable cardiac, which would not be expected until a quant of over 3000. I examined the patient with similar findings to the emergency department doctor. Left lower quadrant tenderness. The patient is obese. MEDICAL/SURGICAL HISTORY: Obstetrical History: Vaginal deliveries 10 or 14 years ago at [place] and [place]. Surgical History: Gallbladder last year at [place]. Medical History: Noncontributory besides blood pressure. MEDICATIONS: 1. Hypertensive medications, but the patient is not taking. Information with regard to taking them was given to the patient. ALLERGIES: 1. LATEX GLOVES. 2. CINNAMON, AN OCCASIONAL RASH. SOCIAL HISTORY: Smoking, drinking, drugs: Occasional alcohol. FAMILY HISTORY: Nothing significant in siblings and parents, although hypertension, diabetes. REVIEW OF SYSTEMS: Alert and oriented x3. Genitourinary: Purpose for visit. Cardiovascular: No shortness of breath or chest pain. Gastrointestinal: Daily bowel movements. PHYSICAL EXAMINATION: Brief physical exam consistent with emergency department findings. VITAL SIGNS: stable. ENT: Grossly intact. BREASTS: Exam not done. CHEST: Clear. ABDOMEN: Minimal tenderness in lower abdomen. EXTREMITIES: Normal. PELVIC: No pelvic exam. RECTAL: Deferred. IMPRESSION: 1. Apparent ectopic foci with a quantitative hCG of 59. 2. Intrauterine device in place. 3. No obvious site. PLAN: The patient was given some pain medications previously. She was given obvious choices to be put on observation status with serial hematocrits. She would like to have the one-time dose of methotrexate 50 mg per meter squared. This will happen tonight or in the morning. Serial hematocrits. Nothing by mouth. Occasional pain medications. Probable discharge and followup with me with quantitative in [address], risks of ectopic and information given to the patient, but this is unlikely the time as far as urgent surgery needed.
--- NOTE | 2017-01-30 23:03 | NUR ---
Pt. arrived to floor at approx. 2130 via ER stretcher accompanied by her boyfriend. Pt. ambulated from stretcher to bed without issues. Stated her pain was 6/10 in lower abdomen/pelvic area, but declined the need for pain medication. BP high upon arrival, 187/115, rechecked and BP was lower. Pt. states she was prescribed BP medication from her PCP, but has stopped taking them due to needing a refill. She does not recall the name of the medication. Pt. to have serial beta Hcg levels drawn every 8 hours. Pt. is wearing a alfred pad, very light drainage noted. WCTM.
--- NOTE | 2017-01-30 23:34 | NUR ---
Pt. states she does not take any medications at home, besides the occasional excedrin for headaches.
[2017-01-31 02:29] VITALS: BP 113/62
--- NOTE | 2017-01-31 05:23 | NUR ---
Pt. has been resting in bed throughout shift. Denies the need for pain medication at this time. IV fluids infusing without issues. Denies nausea. Scant amount of light blood to alfred pad this shift. WCTM.
--- NOTE | 2017-01-31 05:38 | NUR ---
To clarify, pt. is NPO with sips of fluids/ice chips ok per Dr. Morales. Pt. has been tolerating this well.
[2017-01-31 06:58] VITALS: BP 106/57
--- NOTE | 2017-01-31 09:35 | Provider's Discharge Care Plan ---
Problem, Goal, Plan Problem List 1. Ectopic Goals: Improve disease control Instructions: Follow up as needed
--- NOTE | 2017-01-31 09:35 | Provider's Discharge Care Plan ---
Problem, Goal, Plan Problem List 1. Ectopic Goals: Improve disease control Instructions: Follow up as needed
[2017-01-31] MEDS ORDERED: VICODIN EQUIVAL1 TAB PO (09:37)
[2017-01-31 10:22] VITALS: BP 151/91
--- NOTE | 2017-01-31 10:34 | NUR ---
revied lab work by phone with MD perea. he reports OK to dc patient to home. discharge education completed. pt given written and verbal instructions, rx for pain medication. she states understanding of care
--- NOTE | 2017-01-31 13:20 | DISCHARGE SUMMARY ---
ADMIT DATE: 01/30/2017 DISCHARGE DATE: 01/31/2017 ADMITTING DIAGNOSIS: 1. Rule out ectopic DISCHARGE DIAGNOSIS: 1. Suspected ectopic foci; small, decreasing quantitative hCG HOSPITAL COURSE: Management: observation, medication, serial quantitative hCG. See H&P. The patient was admitted overnight per patient's request. She was also offered discharge with methotrexate treatment and followup. The patient elected to be observed overnight. She had a quantitative hCG on admission that was 59. Eight hours later it was 38. Another hCG is now pending, and it is suspected it is still dropping. Minimal pain medicines requested during the night. DISCHARGE INSTRUCTIONS/MEDICATIONS: The patient is being discharged home on Vicodin, which she took last year after her cholecystectomy. Warnings and precautions were given to the patient. Methotrexate was going to be treated, but the values are dropping and the value appears to be less than the minimum. We will hold on methotrexate treatment at this time. The patient understands and accepts. The patient is to follow up in 1 week or p.r.n. for pain. Information on the patient's IUD placement was noted on ultrasound to be correct. Questions about IUD are answered.
--- NOTE | 2017-02-03 17:49 | ED DISCHARGE INSTRUCTIONS ---
Patient: TAL ANGEL General Instructions [facility] VisitID: [id number] [address] [place] [address] 36y, F Registration Date/Time: 01/30/2017 ectopic , acute intraabdominal hemorrhage, acute intractable abdominal pain. (Electronically signed by Javed Saleh Dr. 01/31/2017 9:17)
--- NOTE | 2017-02-03 17:49 | ED DISCHARGE INSTRUCTIONS ---
Patient: TAL ANGEL General Instructions [facility] VisitID: [id number] [address] [place] [address] 36y, F Registration Date/Time: 01/30/2017 ectopic , acute intraabdominal hemorrhage, acute intractable abdominal pain. (Electronically signed by Javed Saleh Dr. 01/31/2017 9:17)
--- NOTE | 2017-02-03 17:50 | ED MED RECONCILIATION SUMMARY ---
Patient: TAL ANGEL Medication Reconciliation Report [facility] VisitID: [id number] [address] [place] [address] 36y, F Registration Date/Time: 01/30/2017 Weight: 136.0 kg Height/Length: 69 in. BMI: 44.3 ALLERGIES: Cinamon , Eggs, Latex The patient's Home Medications are listed below: NONE. The source(s) of the original Home Medication information: patient The following Medications were given to the patient in the Emergency Department: Zofran [IVP] IVP 4 mg, administered: 01/30/2017 4:44:00 PM Morphine [IVP] IVP 4 mg, administered: 01/30/2017 4:49:00 PM Morphine [IVP] IVP 8 mg, administered: 01/30/2017 5:21:00 PM Morphine [IVP] IVP 8 mg, administered: 01/30/2017 6:16:00 PM Morphine [IVP] IVP 8 mg, administered: 01/30/2017 8:31:00 PM The following Medications were prescribed to the patient: None.
--- NOTE | 2017-02-03 17:50 | ED MED RECONCILIATION SUMMARY ---
Patient: TAL ANGEL Medication Reconciliation Report [facility] VisitID: [id number] [address] [place] [address] 36y, F Registration Date/Time: 01/30/2017 Weight: 136.0 kg Height/Length: 69 in. BMI: 44.3 ALLERGIES: Cinamon , Eggs, Latex The patient's Home Medications are listed below: NONE. The source(s) of the original Home Medication information: patient The following Medications were given to the patient in the Emergency Department: Zofran [IVP] IVP 4 mg, administered: 01/30/2017 4:44:00 PM Morphine [IVP] IVP 4 mg, administered: 01/30/2017 4:49:00 PM Morphine [IVP] IVP 8 mg, administered: 01/30/2017 5:21:00 PM Morphine [IVP] IVP 8 mg, administered: 01/30/2017 6:16:00 PM Morphine [IVP] IVP 8 mg, administered: 01/30/2017 8:31:00 PM The following Medications were prescribed to the patient: None.
--- NOTE | 2017-02-03 17:50 | ED MAR SUMMARY ---
..... Medication Administration Record [facility] [address] [place] [address] Patient: TAL ANGEL Visit ID: [id number] 36y, F Weight: 136.0 kg Height/Length: 69 in BMI: 44.3 ALLERGIES: Latex, Cinamon , Eggs Given 16:44 01/30/2017 Asmita Akins R.N. Medication Administered: ZOFRAN [IVP] (ONDANSETRON HCL), Dose: 4 mg IVP over 1 minute(s), Site: #1 right hand. Medication Ordered: Zofran IV 4 mg (NOW). Given 16:49 01/30/2017 Asmita Akins R.N. Medication Administered: MORPHINE [IVP], Dose: 4 mg IVP over 2 minute(s), Site: #1 right hand. Medication Ordered: Morphine IV 4 mg (HIGH ALERT MEDICATION, NOW). Given 17:21 01/30/2017 Asmita Akins R.N. Medication Administered: MORPHINE [IVP], Dose: 8 mg IVP over 3 minute(s), Site: #1 right hand. Medication Ordered: Morphine IV 8 mg (HIGH ALERT MEDICATION, NOW). Given 18:16 01/30/2017 Allegra Orlando R.N. Medication Administered: MORPHINE [IVP], Dose: 8 mg IVP, Site: #1 right hand. Medication Ordered: Morphine IV 8 mg (HIGH ALERT MEDICATION, NOW). Given 20:31 01/30/2017 Allegra Orlando R.N. Medication Administered: MORPHINE [IVP], Dose: 8 mg IVP, Site: #1 right hand. Medication Ordered: Morphine IV 8 mg (HIGH ALERT MEDICATION, NOW).
--- NOTE | 2017-02-03 17:50 | ED MAR SUMMARY ---
..... Medication Administration Record [facility] [address] [place] [address] Patient: TAL ANGEL Visit ID: [id number] 36y, F Weight: 136.0 kg Height/Length: 69 in BMI: 44.3 ALLERGIES: Latex, Cinamon , Eggs Given 16:44 01/30/2017 Asmita Akins R.N. Medication Administered: ZOFRAN [IVP] (ONDANSETRON HCL), Dose: 4 mg IVP over 1 minute(s), Site: #1 right hand. Medication Ordered: Zofran IV 4 mg (NOW). Given 16:49 01/30/2017 Asmita Akins R.N. Medication Administered: MORPHINE [IVP], Dose: 4 mg IVP over 2 minute(s), Site: #1 right hand. Medication Ordered: Morphine IV 4 mg (HIGH ALERT MEDICATION, NOW). Given 17:21 01/30/2017 Asmita Akins R.N. Medication Administered: MORPHINE [IVP], Dose: 8 mg IVP over 3 minute(s), Site: #1 right hand. Medication Ordered: Morphine IV 8 mg (HIGH ALERT MEDICATION, NOW). Given 18:16 01/30/2017 Allegra Orlando R.N. Medication Administered: MORPHINE [IVP], Dose: 8 mg IVP, Site: #1 right hand. Medication Ordered: Morphine IV 8 mg (HIGH ALERT MEDICATION, NOW). Given 20:31 01/30/2017 Allegra Orlando R.N. Medication Administered: MORPHINE [IVP], Dose: 8 mg IVP, Site: #1 right hand. Medication Ordered: Morphine IV 8 mg (HIGH ALERT MEDICATION, NOW).
== END 2017-01-31 10:30 | disposition home or self-care (01) ==
LOC: ED SRH 16:05 → TRANS SRH 20:12 → ACUTE2 SRH 21:00
PROVIDERS: ADMIT Obstetrics & Gynecology
DX: O26.899 Other specified pregnancy related conditions, unspecified trimester (principal); N94.10 Unspecified dyspareunia; R93.8 Abnormal findings on diagnostic imaging of other specified body structures; Z97.5 Presence of (intrauterine) contraceptive device; Z3A.00 Weeks of gestation of pregnancy not specified
CPT/HCPCS: 29230; 29263; 90001; 90004; 90074; 90100; 90155; 90197; 91004; 91162; 91163; 93070; 95059